=== PATIENT | female | born 1975 | race American Indian/Alaskan Native ===

== ENCOUNTER 2022-01-11 15:21 | Emergency (ER) | payer MEDICAID | END 2022-01-11 15:26 | disposition left against medical advice (07) | LOC: ED 15:21 | DX: O46.92 Antepartum hemorrhage, unspecified, second trimester (principal); Z3A.14 14 weeks gestation of pregnancy; Z53.21 Procedure and treatment not carried out due to patient leaving prior to being seen by health care provider ==

== ENCOUNTER 2022-02-03 07:44 | Day surgery (SDC) | payer MEDICAID ==
--- NOTE | 2022-02-01 23:21 | History and Physical Report ---
History of Present Illness Date of examination: 01/27/22 History of present illness: Patient has been reassessed/reevaluated. H&P has been reviewed. No interval changes. This is a 46 year old patient with missed Patient desires definitive treatment Vital Signs: Patient Profile: 46 Years Old Female Height: 62 inches Weight: 175 pounds BMI: 32.00 Temp: 96.5 degrees F BP sittin / 62 (left arm) Pt. in pain? no Menstrual History: EDC by LMP: 06/29/2022 Best Working EDC: 06/29/2022 LMP - Character: no menses Current Method of Contraception: None Past History : 4 Term Births: 2 Premature Births: 2 Living Children: 2 Para: 2 Mult. Births: 0 Prev : 2 Aborta: 2 Elect. Ab: 0 Spont. Ab: 2 Ectopics: 0 # 1 Delivery date: 2006 Weeks Gestation: 38 labor: no Delivery type: Anesthesia type: spinal Delivery location: [facility] Sex: Male weight: 6-11 Comments: HTN, deceleration # 2 Delivery date: 2012 Weeks Gestation: 38 labor: no Delivery type: Anesthesia type: spinal Delivery location: [place] Sex: Male weight: 6-9 Comments: rpt , no complications # 3 Delivery date: 2018 Weeks Gestation: 12 labor: no Delivery type: SAB Comments: D& C no complications # 4 Delivery date: 12/30/2021 Weeks Gestation: 8 Delivery type: SAB Comments: MAB Current Allergies: No known allergies Past Medical History: Negative Past Medical History Past Surgical History: D&C: 2018 Social History: Patient is Smoking History: Patient has never smoked. 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 of genital herpes: no Partner hx. of genital herpes: no Hx of STD: none Review of Systems General Complains of fatigue. Denies fever, chills, sweats, anorexia, weakness, malaise, weight loss and sleep disorder. Denies vaginal discharge, incontinence, dysuria, hematuria, urinary frequency, amenorrhea, menorrhagia, abnormal vaginal bleeding, pelvic pain, genital sores, decreased libido, painful periods, painful sex, urinary urgency, hot flashes, vaginal dryness, vaginal itching and vaginal odor. CV Denies chest pains, palpitations, syncope, dyspnea on exertion, orthopnea, PND and peripheral edema. Resp Denies cough, dyspnea at rest, excessive sputum, hemoptysis, wheezing and pleurisy. GI Denies nausea, vomiting, diarrhea, constipation, change in bowel habits, abdominal pain, melena, hematochezia, jaundice, gas/bloating, indigestion/heartburn, dysphagia and odynophagia. Breast Denies left breast lump, right breast lump, nipple discharge, bloody discharge from nipple, breast pain, abnormal mammogram and breast enlargement. Psych Denies depression, anxiety, irritability and mood swings. Past History Past Medical History: other (See HPI) Past Surgical History: Other (See HPI) Social history: full code, other (See HPI) Family history: other (See HPI) Medications and Allergies Allergies Allergy/AdvReac Type Severity Reaction Status Date / Time No Known Allergies Allergy Verified 01/31/22 15:22 Home Medications Medication Instructions Recorded Confirmed Last Taken Type No Known Home Medications [No 01/31/22 01/31/22 Unknown History Reported Home Medications] Exam - Physical Exam Narrative exam: HEENT: normocephalic, no lesions or deformities Skin no significant abnormal lesions or rashes Chest: respiratory effort normal, clear to auscultation CV: regular, normal S1-S2, no murmur, no rub, no gallop Abdomen: normal bowel sounds, soft, nontender, no HSM Neuro: no gross anomalities Extremities: no clubbing, cyanosis, or edema 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 Questions answered. Patient desires a confirmatory ultrasound and repeat Bhcg. Discussed ultrasound findings Medical and surgical treatment options discussed Discussed risks and benefits of expectant management, treatments with medications and dilatation and curretage. Conservative therapies have failed. Patient desires definitive treatment Patient desires D&C Discussed risk of surgery including infection, bleeding and risk of perforating her uterus. Questions answered. Patient understands and desires to proceed
[2022-02-03] MEDS ORDERED: LACTATED RINGERS 1,000 ML IV SCH (08:30)
[2022-02-03] MEDS ORDERED: HYDROmorphone 0.5 MG/0.5 ML INJ IV PRN ×2 (08:30)
[2022-02-03] MEDS ORDERED: ONDANSETRON 4 MG/2 ML INJ IV PRN (08:30)
--- NOTE | 2022-02-03 08:30 | Anesthesia Day of Surgery ---
Anesthesia Day of Surgery - Day of Surgery Patient Examined: Yes Patient H&P Reviewed: Yes Patient is NPO: Yes (See preop from 01/10 under a different visit)
[2022-02-03] MEDS ORDERED: MIDAZOLAM 2 MG/2 ML INJ IV NR (09:00)
[2022-02-03 09:06] LABS: Hematocrit 36.7 % (30.3-42.9); Hemoglobin 12.5 gm/dl (10.1-14.3)
[2022-02-03] MEDS ORDERED: METHYLERGONOVINE MALEATE 0.2 MG/ML VIAL IM ONE ×2 (10:40→11:27)
[2022-02-03] MEDS ORDERED: fentaNYL 100 MCG/2 ML INJ ONE (10:53)
[2022-02-03] MEDS ORDERED: propofoL 200 MG/20 ML VIAL IV ONE (10:53)
[2022-02-03] MEDS ORDERED: MIDAZOLAM 2 MG/2 ML INJ ONE (10:53)
[2022-02-03] MEDS ORDERED: LIDOCAINE MPF (2%) 20 MG/1 ML VIAL 5 ML ONE (10:54)
[2022-02-03] MEDS ORDERED: SODIUM CHLORIDE 0.9% IRR 1,500 ML BOTTLE IR ONE (11:15)
[2022-02-03] MEDS ORDERED: KETOROLAC 30 MG/1 ML INJ ONE (11:31)
[2022-02-03] MEDS ORDERED: ONDANSETRON 4 MG/2 ML INJ ONE (11:31)
[2022-02-03] MEDS ORDERED: dexAMETHasone 20 MG/5 ML VIAL ONE (11:31)
[2022-02-03] MEDS ORDERED: oxyCODONE /ACETAMINOPHEN 5-325MG TAB PO PRN (11:46)
[2022-02-03] MEDS ORDERED: ACETAMINOPHEN 325 MG TAB PO PRN (11:46)
--- NOTE | 2022-02-03 11:46 | Operative Report ---
Operative Report Operative Report: Date of procedure: February 03, 2022 Pre-operative diagnosis: Missed Post-operative diagnosis: Same Procedure name(s): Suction dilatation and curettage Surgeon: Madhav Moore MD Negative Stripper: PRICILA Anesthesia: General EBL: 50 mL Complications: None Findings: A large amount of tissue consistent with products of conception Specimen(s): Uterine contents Procedure: The patient was brought operating room where general anesthesia was induced without difficulty. Patient was placed in dorsal lithotomy position prepped and draped in the usual sterile manner. Rubber catheter was used to empty her bladder. Speculum placed in the vagina. Tenaculum was placed at 12:00. The cervix was dilated progressively with Hegar dilators. A 10 mm suction catheter was placed through the cervical os. Several passes of the suction catheter removed the uterine contents. A gentle curettage was done with a banjo curettte, until a gritty sensation was felt throughout the uterine cavity. Further suction with the suction curettage revealed no further products. All instruments were removed patient was hemostatic. She was awakened in the operating room and accompanied to recovery room in good condition.
--- NOTE | 2022-02-03 11:50 | Short Stay Summary ---
Short Stay Documentation Date of service: 02/03/22 - History Principal diagnosis: Missed H&P: dictated (See for details) Past Medical History: other (See HPI) Past Surgical History: Other (See HPI) Social history: full code, other (See HPI) - Allergies and Medications Current Medications: Allergies No Known Allergies Allergy (Verified 01/31/22 15:22) Home Medications Medication Instructions Recorded Confirmed Last Taken Type DOXYCYCLINE Hyclate [Vibramycin 100 mg PO Q12HR #14 capsule 02/03/22 Unknown Rx CAP] Ibuprofen [Motrin] 800 mg PO TID PRN #30 tablet 02/03/22 Unknown Rx Active Medications Acetaminophen (Acetaminophen 325 Mg Tab) 650 mg PO Q4H PRN PRN Reason: Pain MILD(1-3)/Fever >100.5/JACKSON Hydromorphone HCl (Hydromorphone 0.5 Mg/0.5 Ml Inj) 0.5 mg IV Q10MIN PRN PRN Reason: Pain , Severe (7-10) Stop: 02/03/22 18:00 Hydromorphone HCl (Hydromorphone 0.5 Mg/0.5 Ml Inj) 0.25 mg IV Q10MIN PRN PRN Reason: Pain, Moderate (4-6) Stop: 02/03/22 18:00 Lactated Ringer's (Lactated Ringers) 1,000 mls @ 125 mls/hr IV DIRECT SERGEI Midazolam HCl (Midazolam 2 Mg/2 Ml Inj) 2 mg IV PREOP NR Stop: 02/03/22 23:59 Ondansetron HCl (Ondansetron 4 Mg/2 Ml Inj) 4 mg IV ONCE PRN PRN Reason: Nausea And Vomiting Stop: 02/03/22 18:00 Oxycodone/Acetaminophen (Oxycodone /Acetaminophen 5-325mg Tab) 1 tab PO Q6H PRN PRN Reason: Pain, Moderate (4-6) - Physical exam General appearance: no acute distress Integumentary: no rash HEENT: Atraumatic Lungs: Normal air movement Breasts: deferred Heart: Regular rate Gastrointestinal: normal Female Genitourinary: normal Rectal Exam: deferred Extremities: no ischemia - Brief post op/procedure progress note Date of procedure: 02/03/22 (See dictated operative note for details) Condition: stable - Hospital course Hospital course: Patient was admitted underwent the above him procedure without any complications. Patient will be discharged with follow-up in office in 1-2 weeks for postop check. - Disposition Condition at discharge: Good Disposition: 01 HOME / SELF CARE / HOMELESS - Discharge Diagnoses (1) Missed Status: Acute Short Stay Discharge Plan Activity: advance as tolerated Diet: regular Wound: open to air Additional Instructions: Patient to call office for any heavy vaginal bleeding, fever, chills, nausea, vomiting or pain not controlled by pain medication. Follow up with: PRIMARY CARE, [Primary Care Provider] - 7 Days Prescriptions: Ibuprofen [Motrin] 800 mg PO TID PRN #30 tablet PRN Reason: Pain DOXYCYCLINE Hyclate [Vibramycin CAP] 100 mg PO Q12HR #14 capsule
[2022-02-03 16:43] VITALS: BP 128/76
--- NOTE | 2022-02-03 18:00 | Post Anesthesia Evaluation ---
- Post Anesthesia Evaluation Patient Participated: Yes Airway Patent: Yes Stable Respiratory Function: Yes Nausea/Vomiting: No Temp > 96.8F: Yes Pain Manageable: Yes Adequeate Hydration: Yes Anesthesia Complications: No Block Receding Appropriately: Not Applicable Patient on Ventilator: No
== END 2022-02-03 14:00 | disposition home or self-care (01) ==
LOC: OR 07:44
PROVIDERS: ATTEND Obstetrics & Gynecology
DX: O02.1 Missed abortion (principal); Z79.899 Other long term (current) drug therapy; Z20.822 Contact with and (suspected) exposure to COVID-19
CPT/HCPCS: 36415; 59820; 85014; 85018; 86850; 86900; 86901; 88305; J1100; J1885; J2210; J2250; J2405; J2704; J3010; J7120; U0003